=== PATIENT | female | born 1970 | race Caucasian/White ===

== ENCOUNTER 2016-10-02 15:35 | Outpatient (CLI) ==
[2016-01-04 21:01] VITALS: BMI 37.4
--- NOTE | 2016-10-02 16:05 | DI ---
EXAM: Lumbar spine three views HISTORY: Back pain with no known injury. FINDINGS: No comparison. No noticeable scoliosis. Sacroiliac joints are within normal limits. Mi ld diffuse degenerative endplate changes. There is at least mild facet arthropathy of the lumbosacr al junction. No fracture or loss of vertebral body height. There is no spondylolisthesis. IMPRESSION: Degenerative endplate disease diffusely, mild. Facet arthropathy is at least mild at the lumbosacra l junction.
== END 2016-10-02 15:36 | disposition home or self-care (01) ==
LOC: RAD 15:35
PROVIDERS: ATTEND Family Medicine
DX: M54.5 Low back pain (principal)

== ENCOUNTER 2017-05-19 22:59 | Emergency (ER) ==
[2017-05-19 23:16] VITALS: BP 120/75; TEMP 98.4; BMI 41.3
[2017-05-19] MEDS ORDERED: BENADRYL IM STA (23:36)
[2017-05-19] MEDS ORDERED: DECADRON 4 MG/ML SDV IM STA (23:37)
--- NOTE | 2017-05-19 23:40 | ED.PDOC ---
General ED Provider: Dr. VAMSI HE-ER Chief Complaint: Bite Stated Complaint: i got bit by something Time Seen by Physician: 23:10 Mode of Arrival: Walk-In Information Source: Patient Exam Limitations: No limitations Primary Care Provider: KARON TURNER Nursing and Triage Documentation Reviewed and Agree: Yes Reviewed sepsis parameters & appropriate labs ordered?: Yes System Inflammatory Response Syndrome: Not Applicable Sepsis Protocol: For patient's 13 years and over: Temp is 96.8 and below OR 101 and greater Pulse >90 BPM Resp >20/minute Acutely Altered Mental Status Are patient's symptoms suggestive of a new infection, such as: -Pneumonia -Skin, Soft Tissue -Endocarditis -UTI -Bone, Joint Infection -Implantable Device -Acute Abdominal Infection -Wound Infection -Meningitis -Blood Stream Catheter Infection -Unknown Skin Complaint Exam - Skin Rash/Itching Complaint/Exam Onset/Duration: several hours Symptoms Are: Still present Initial Severity: Mild Current Severity: Moderate Location: arms Potential Exposures: Reports: Insect bite Aggravating: Reports: None Alleviating: Reports: None Associated Signs and Symptoms: Denies: Difficulty breathing, Fever, Chills Skin Findings: Present: Urticaria, Lesions Differential Diagnoses: Allergic Reaction, Other Review of Systems - Review Of Systems Constitutional: Reports: No symptoms Eyes: Reports: No symptoms Ears, Nose, Mouth, Throat: Reports: No symptoms Respiratory: Reports: No symptoms Cardiac: Reports: No symptoms GI: Reports: No symptoms : Reports: No symptoms Musculoskeletal: Reports: No symptoms Skin: Reports: Rash Neurological: Reports: No symptoms Endocrine: Reports: No symptoms Hematologic/Lymphatic: Reports: No symptoms All Other Systems: Reviewed and Negative Past Medical History - Past Medical History Previously Healthy: Yes Endocrine: Reports: None Cardiovascular: Reports: None Respiratory: Reports: None Hematological: Reports: None Gastrointestinal: Reports: None Genitourinary: Reports: None Neuro/Psych: Reports: Anxiety Musculoskeletal: Reports: None Cancer: Reports: None Last Menstrual Period: PRESENTLY - Surgical History General Surgical History: Reports: Tubal ligation - Family History Family History: Reports: None - Social History Smoking Status: Never smoker Hx Substance Use: No Alcohol Screening: None - Immunizations Tetanus Shot up to Date: Yes Physical Exam - Physical Exam Appearance: Well-appearing Eyes: DAMIAN, EOMI, Conjunctiva clear ENT: Ears normal, Nose normal, Oropharynx normal Neck: Supple Respiratory: Airway patent, Breath sounds clear, Breath sounds equal, Respirations nonlabored Cardiovascular: RRR, Pulses normal, No rub, No murmur GI/: Soft Musculoskeletal: Normal strength Skin: Warm, Dry, Normal color (noted urticarial rash on both arms) Neurological: Sensation intact Psychiatric: Affect appropriate, Mood appropriate Critical Care Note - Critical Care Note Total Time (mins): 0 Course - Course Orders, Labs, Meds: Orders Category Date Time Status Dexamethasone 4 mg/ml Inj [Decadron 4 mg/ml Sdv] MEDS 05/19/17 23:37 Discontinued 8 mg IM ONCE STA Diphenhydramine Inj [Benadryl] MEDS 05/19/17 23:36 Discontinued 50 mg IM ONCE STA Medications Discontinued Medications Generic Name Dose Route Start Last Admin Trade Name Freq PRN Reason Stop Dose Admin Dexamethasone Sodium Phosphate 8 mg 05/19/17 23:37 Decadron 4 Mg/Ml Sdv IM 05/19/17 23:38 ONCE STA Diphenhydramine HCl 50 mg 05/19/17 23:36 Benadryl IM 05/19/17 23:37 ONCE STA Vital Signs: Temp Pulse Resp BP Pulse Ox 05/19/17 23:00 98.4 F 68 20 120/75 98 Departure - Departure Time of Disposition: 23:39 Disposition: HOME SELF-CARE Discharge Problem: Insect bite Qualifiers: Encounter type: initial encounter Qualified Code(s): W57.XXXA - Bitten or stung by nonvenomous insect and other nonvenomous arthropods, initial encounter Instructions: Insect Bite or Sting (ED) Condition: Good Pt referred to PMD for follow-up: Yes IPMP verified?: No Additional Instructions: prednisone 40mg x 2 days then 20mg x 2 days then 10mg x 2 days--benadryl 50mg q 4hrs prn itching #21--f/u wtih dr turner if not improving Allergies/Adverse Reactions: Allergies shellfish derived Adverse Reaction (Verified 05/19/17 23:13) FACIAL/MOUTH SWELLING Home Medications: Ambulatory Orders Citalopram Hydrobromide [Celexa] 40 mg PO DAILY 06/20/13 Disposition Discussed With: Patient, Family
== END 2017-05-20 00:19 | disposition home or self-care (01) ==
LOC: ED 22:59
DX: S40.862A Insect bite (nonvenomous) of left upper arm, initial encounter (principal); S40.861A Insect bite (nonvenomous) of right upper arm, initial encounter; W57.XXXA Bitten or stung by nonvenomous insect and other nonvenomous arthropods, initial encounter
CPT/HCPCS: 96372; 99282

== ENCOUNTER 2017-07-15 08:04 | Outpatient (CLI) ==
--- NOTE | 2017-07-15 09:18 | US ---
EXAM: Ultrasound abdomen limited. HISTORY: Abdominal pain. COMPARISON: CT 11/29/2009. TECHNIQUE: Abdominal, real time with image documentation: limited (eg, single organ, quadrant, foll ow-up) FINDINGS: The liver demonstrates increased parenchymal echogenicity without intrahepatic biliary dil atation. Portal venous flow is normal in direction. The gallbladder contains echogenic shadowing st ructure. There is no gallbladder wall thickening or pericholecystic fluid. Common duct measures melo roximately 0.5 cm. Visualized portions of the pancreas are unremarkable. IMPRESSION: 1. Cholelithiasis. 2. Fatty infiltration of the liver.
== END 2017-07-15 08:05 | disposition home or self-care (01) ==
LOC: RAD 08:04
PROVIDERS: ATTEND Family Medicine
DX: R10.9 Unspecified abdominal pain (principal)

== ENCOUNTER 2018-04-14 15:36 | Outpatient (CLI) | END 2018-04-14 15:37 | disposition home or self-care (01) | LOC: RHC-LAB 15:36 | PROVIDERS: ATTEND Nurse Practitioner Family | DX: Z12.31 Encounter for screening mammogram for malignant neoplasm of breast (principal); Z00.00 Encounter for general adult medical examination without abnormal findings | CPT/HCPCS: 36415; 80053; 80061; 84443; 85025 ==